=== PATIENT | male | born 1985 | race Caucasian/White ===

== ENCOUNTER 2018-08-05 13:46 | Inpatient (IN) | payer OTHER ==
--- NOTE | 2018-08-05 13:51 | EDPHY ---
H & P Time Seen by Provider: 08/05/18 13:49 HPI/ROS: CHIEF COMPLAINT: Homicidal ideation HISTORY OF PRESENT ILLNESS: 33-year-old male arrives via police from mental health walk-in clinic after he allegedly made toward his brother. Patient denies complaints of pain or discomfort. Denies suicidal ideation. Denies illicit drug or alcohol use. History schizoaffective disorder, off medication. REVIEW OF SYSTEMS: 10 systems reviewed and negative with the exception of the elements mentioned in the history of present illness PAST MEDICAL & SURGICAL HISTORY: Schizoaffective disorder. SOCIAL HISTORY: Denies illicit drug or alcohol use PHYSICAL EXAM (Prior to examination, patient consented to physical exam, hands were washed and my usual and customary physical exam procedures followed) 1) GENERAL: Well-developed, well-nourished, alert and oriented. Agitated. 2) HEAD: Normocephalic, atraumatic 3) HEENT: Pupils equal, round, reactive to light bilaterally. Sclera anicteric. 4) NECK: Full range of motion, no meningeal signs. 5) LUNGS: Clear auscultation bilaterally, no wheezes, no rhonchi, no retractions. 6) HEART: Regular rate and rhythm, no murmur, no heave, no gallop. 7) ABDOMEN: No guarding, no rebound, no focal tenderness,, 8) MUSCULOSKELETAL: Moving all extremities, no focal areas of tenderness, no obvious trauma. No peripheral edema or discoloration. 9) BACK: No obvious trauma, no visual or palpable abnormality. 10) SKIN: No rash, no petechiae. 11) Psychiatric: Patient is oriented X 3, there is no agitation. DIFFERENTIAL DIAGNOSIS: In no particular order including but not limited to depression, homicidal ideation, suicidal ideation (Lashawn,Michael Cara) Constitutional: Initial Vital Signs Temperature (C) 37.2 C 08/05/18 13:46 Heart Rate 104 H 08/05/18 13:46 Respiratory Rate 16 08/05/18 13:46 Blood Pressure 158/108 H 08/05/18 13:46 O2 Sat (%) 95 08/05/18 13:46 O2 Delivery Mode Room Air Allergies/Adverse Reactions: No Known Allergies Allergy (Unverified 09/08/12 09:31) Home Medications: Medication Instructions Recorded Mirtazapine [Remeron] 0 mg PO DAILY 09/08/12 risperiDONE MICROSPHERES 62 mg IM .Q 2 10 DAYS 09/08/12 [Risperdal Consta 37.5 mg (RX)] CLONAZEPAM 08/05/18 Medical Decision Making ED Course/Re-evaluation: 1:49 p.m.: Patient has allegedly made homicidal ideations toward his brother. [employer] police are at the bedside and have been advised by myself to contact the brother to alert him of the statements that been made toward him.. Patient is on an M1. 5:00 p.m.: Care turned over to Dr. Chandler Cavazos ([facility],Michael Acra) 2039: Patient seen and evaluated by mental health. Patient on M1 hold. Homicidal ideation. Patient accepted at [address] [place] [address] Stewart[address] EMTALA FILLED OUT. APPROP TRANSFER TO BE SET UP (Chandler Cavazos) - Data Points Laboratory Results: Laboratory Results 08/05/18 14:13 08/05/18 14:13 08/05/18 08/05/18 08/05/18 17:10 14:13 14:13 WBC RBC Hgb Hct MCV MCH MCHC RDW Plt Count MPV Neut % (Auto) Lymph % (Auto) [place] % (Auto) Eos % (Auto) Baso % (Auto) Nucleat RBC Rel Count Absolute Neuts (auto) Absolute Lymphs (auto) Absolute Monos (auto) Absolute Eos (auto) Absolute Basos (auto) Absolute Nucleated RBC Immature Gran % Immature Gran # Sodium 140 mEq/L mEq/L (135-145) Potassium 4.4 mEq/L mEq/L (3.5-5.2) Chloride 102 mEq/L mEq/L (97-110) Carbon Dioxide 27 mEq/l mEq/l (22-31) Anion Gap 11 mEq/L mEq/L (6-14) BUN 16 mg/dL mg/dL (7-23) Creatinine 0.9 mg/dL mg/dL (0.7-1.3) Estimated GFR > 60 Glucose 107 mg/dL H mg/dL (70-100) Calcium 10.4 mg/dL mg/dL (8.5-10.4) TSH 3.750 uIU/mL uIU/mL (0.465-4.680) Salicylates < 1.0 mg/dL L mg/dL (2.0-20.0) Urine Opiates Screen NEGATIVE (NEGATIVE) Acetaminophen < 10 mcg/mL L mcg/mL (10-30) Urine Barbiturates NEGATIVE (NEGATIVE) Ur Phencyclidine Scrn NEGATIVE (NEGATIVE) Ur Amphetamine Screen NEGATIVE (NEGATIVE) U Benzodiazepines Scrn NEGATIVE (NEGATIVE) Urine Cocaine Screen NEGATIVE (NEGATIVE) U Marijuana (THC) Screen NEGATIVE (NEGATIVE) Ethyl Alcohol < 10 mg/dL mg/dL (0-10) 08/05/18 14:13 WBC 10.18 10^3/uL H 10^3/uL (3.80-9.50) RBC 4.86 10^6/uL 10^6/uL (4.40-6.38) Hgb 15.1 g/dL g/dL (13.7-17.5) Hct 44.4 % % (40.0-51.0) MCV 91.4 fL fL (81.5-99.8) MCH 31.1 pg pg (27.9-34.1) MCHC 34.0 g/dL g/dL (32.4-36.7) RDW 13.0 % % (11.5-15.2) Plt Count 310 10^3/uL 10^3/uL (150-400) MPV 9.3 fL fL (8.7-11.7) Neut % (Auto) 70.8 % % (39.3-74.2) Lymph % (Auto) 20.0 % % (15.0-45.0) [place] % (Auto) 8.1 % % (4.5-13.0) Eos % (Auto) 0.3 % L % (0.6-7.6) Baso % (Auto) 0.6 % % (0.3-1.7) Nucleat RBC Rel Count 0.0 % % (0.0-0.2) Absolute Neuts (auto) 7.21 10^3/uL H 10^3/uL (1.70-6.50) Absolute Lymphs (auto) 2.04 10^3/uL 10^3/uL (1.00-3.00) Absolute Monos (auto) 0.82 10^3/uL H 10^3/uL (0.30-0.80) Absolute Eos (auto) 0.03 10^3/uL 10^3/uL (0.03-0.40) Absolute Basos (auto) 0.06 10^3/uL 10^3/uL (0.02-0.10) Absolute Nucleated RBC 0.00 10^3/uL 10^3/uL (0-0.01) Immature Gran % 0.2 % % (0.0-1.1) Immature Gran # 0.02 10^3/uL 10^3/uL (0.00-0.10) Sodium Potassium Chloride Carbon Dioxide Anion Gap BUN Creatinine Estimated GFR Glucose Calcium TSH Salicylates Urine Opiates Screen Acetaminophen Urine Barbiturates Ur Phencyclidine Scrn Ur Amphetamine Screen U Benzodiazepines Scrn Urine Cocaine Screen U Marijuana (THC) Screen Ethyl Alcohol Departure - Departure Referrals: Patient,NotPresent [Unknown] - As per Instructions
[2018-08-05 14:25] LABS: PLATELET COUNT 310 10^3/uL (150-400)
--- NOTE | 2018-08-05 19:03 | ASMTTLCEVL ---
[facility] Evaluation - Basic Information Evaluation Start Date and 08/05/2018 04:30 PM Time Hospital Status Answers: M1 Hold 72-hr M1 Hold Start Date 08/05/2018 01:15 PM and Time Patient statement Notes: "I showed up for my medication and they put me on a hold and I became agitated; Please don't put me in patient I have work on and I'm supposed to see my psychiatrist on Wednesday. I'm not going to hurt anyone or myself. Narrative Notes: Pt is 33 YO male, never , no children, unemployed/disabled, arrived by via police from clinic on M1 Hold after he allegedly made homicidal ideations toward his brother. Per ED report Patient is oriented X 3, there is no agitation, Patient denies complaints of pain or discomfort, pt denies suicidal ideation. Denies illicit drug or alcohol use. Per psychiatrist the pt is severely decompensating in several times looking really different then when at his baseline. Pt has been continuing to decompensate over last 4 months has not been med compliant. Making passive SI statements like "when his dog dies he's going to kill himself." and when extremely psychotic, hearing voices saying his darden, then saying he wants to get a gun to kill the people who are saying these things. 4 different times they have almost hospitalized but were able to come up with a safety plan and pt would be med compliant for a few days. PT Just went home to visit family in [place]. Said he was going to kill his brother, mother drove him back to [place]. Agitated psychotic rambling, verbally threatening. When he's at his worst he's verbally vile not physically aggressive. [facility] ip technology transactions attorney spoke with Pt's psychiatrist Lilian Belcher, and she believes pt needs stabilization on an inpt unit. Diagnosis History Notes: Schizoaffective disorder "Per psychiatrist Pt in [facility] since 2009; Schizoaffective disorder." Prior suicide attempts Notes: None Reported Prior hospitalizations Notes: [facility] 2008 then living in [facility] Treatment Responses Notes: Pt has been stable on medication for many years, held a job, has an apartment, but has bene recently decompesating. History of violence Notes: None reported Therapist: Marielena Alberts Psychiatrist: Lilian Belcher MD @ [facility] Medications (name, dosage, route, freq uency) Notes: Klonapin 10 Zyprexa am 20mg at night 200 Zoloft in the am 45 mg Mirtazapine [Remeron] at night 0 mg PO DAILY 09/08/12 [ [place] discontinued 2 weeks ago because he wasn't taking it in the clinic (only took it for a month). ] Allergies/Reaction Notes: No Known Allergies Allergy Sleep Notes: Good too much 8 to 10 hours Appetite Notes: Good Medical/Surgical history Notes: Pt has Thyrioid Issue but has not followed up per requests Substance use history (frequency, intensity, his tory, duration) Notes: Pt has used substances in the past but is not involved with any at this time. Family composition Notes: Mother brother and extended family live in [place]. Need for family Answers: Yes participation in patient's care Family psychiatric/substance abuse history Notes: Biological Father's Side Developmental history Notes: Denied ADD, ADHD, denied any concussions, TBI's or LOC Abuse concerns Answers: None Marital status/children Notes: Unmarried, one son lviing with his mother Living situation Notes: Living in apt in [facility] Sexual history/orientation Notes: Heterosexual, not active Peer support/family strengths Notes: Per psychiatrist pt's primary support is his family and a friend in [place] named Solomon (who may use substances from time to time and may not be the best influence). Education level/history Notes: High school Work history Notes: PT reported a history of working in [employer], [employer] and [employer] Currently the pt reports he work at [employer]. Notes: None reported Legal Notes: Pt's psychitrist reported pt had kota legal histry prior to 2008 but didn't know what it was. Pt denied any current legal issues. Denominational/Spiritual Notes: Pt reported he believed in Jose and that if you didn't beieved you would go to hel. Leisure Notes: Watching Movies, Petting Dog, buying scratch tickets, and gabmling at [employer] Collateral Notes: Collateral data obtained from Dr. Lilian Belcher MD who wrote the hold for the patient. Patient's strengths Answers: Artistic/Creative/Musical (Please select at least TWO strengths): Athletic Good Friend to Others [place] Supportive Family TLC Evaluation - Mental Status Exam Appearance: Answers: Appropriate Clean Well Groomed Eye Contact: Answers: Good/Direct Mood: Answers: Elevated Irritable Affect: Answers: Appropriate Apprehensive Calm Congruent w/ Mood Guarded Behavior: Answers: Appropriate Cooperative Guarded Impulsive Manipulative Resistive to Care Speech: Answers: Relevant Logical Clear Coherent Circumstantial Hyperverbal Perseverating Rambling Thought Process: Answers: Organized Oriented Alert Circumstantial Distracted Goal Oriented Paranoid Insight: Answers: Poor Judgement: Answers: Poor Manic Signs/Symptoms Answers: Distractibility Impulsivity Irritability Mood Swings Depression Answers: Psychomotor Agitation Signs/Symptoms: Hallucinations: Answers: Auditory Delusions: Answers: Ideas of Reference Paranoid Ideation Persecution Current Stage of Change Answers: Relapse Pt reported to be making Answers: No suicidal/self-injuring threats? Pt reported to have Answers: Yes aggression/assault ideation/behavior? Pt reported to be making Answers: Yes aggression/assault threats? Pt exhibits inability to Answers: Yes care for self/grave disability? Ideation/behavior is Answers: No chronic? Patient has a specific Answers: Yes plan? Pt has access to means to Answers: No execute the plan? Ideation involves Answers: Yes serious/lethal intent? History of Answers: No suicidal/self-injuring ideation, behavior, or threats? History of Answers: No aggressive/assaultive ideation, behavior, or threats? History of serious Answers: No physical harm to self/others while in treatment setting? TLC Evaluation - Suicide/Homicide Risk Suicide Risk Factors: Answers: Agitation Alcohol/Heavy Drug Use Impulsivity Inadequate Social Support Psychotic Disorder Single Homicide/violence risk Answers: Heavy Drug Use factors: Paranoid Ideation Suicide Internal Answers: Frustration Tolerance Protective Factors: Damari with Stress Suicide External Answers: Positive Therapeutic Protective Factors: Relationships Responsibility to Pets Social Support Ranking of patient's Answers: Low suicidal risk: Ranking of patient's Answers: Severe homicidal risk: TLC Evaluation - Wrap-up AXIS I Diagnosis (include DSM-V and ICD-10 codes), must also be entered in [employer], which is the source of truth. Notes: Schizoaffective Disorder, Bipolar Type 295.70 (F25.0) Evaluation End Date and 08/05/2018 07:00 PM Time (HH:MM): Date Signed: 08/05/2018 07:02 PM Electronically Signed By:Reg Vaughn
--- NOTE | 2018-08-05 19:07 | ASMTTCLDSP ---
TLC Discharge Disposition Disposition: Answers: Admit Disposition Notes: Notes: In consultation with [facility] ED physician, Chandler Espinoza MD; Pt's psychiatrist Dr. Belcher and on-call psychiatrist, Callum Stewart MD, both concurred that pt appears to meet 27-65 criteria requiring psychiatric hospitalization as pt appears to be gravely disabled and at risk of harm to others due to a mental illness condition. Pt was given the 3N prohibited belongings list while in the ED. Was patient given the Answers: Yes Inpatient Behavioral Health Prohibited Belongings List while in the ED? For inpatient Callum Stewart MD admission, the following psychiatrist agreed to accept patient for admission to Behavioral Health ([facility]): Type of Hold: Answers: M1/72-hour Hold Hold initiated by: Answers: Psychiatrist For Transfers, Accepting Callum Stewart MD Facility: Date Signed: 08/05/2018 07:06 PM Electronically Signed By:Reg Vaughn
[2018-08-05] MEDS ORDERED: LORazepam 0.5 MG TAB PO PRN (22:13)
[2018-08-05] MEDS ORDERED: NICOTINE POLACRILEX 2 MG GUM B PRN (22:13)
[2018-08-05] MEDS ORDERED: ACETAMINOPHEN 325 MG TAB PO PRN (22:13)
[2018-08-05] MEDS ORDERED: MAG HYDROX/AL HYDROX/SIMETH 30 ML UDCUP PO PRN (22:13)
[2018-08-05] MEDS ORDERED: OLANZapine DISINTEGR 10 MG TAB PO PRN (22:13)
[2018-08-05] MEDS ORDERED: MAGNESIUM HYDROXIDE 30 ML UDCUP PO PRN (22:13)
[2018-08-05] MEDS ORDERED: OLANZapine DISINTEGR 5 MG TAB PO PRN (22:19)
[2018-08-05] MEDS ORDERED: MIRTAZAPINE 30 MG TAB PO SCH (22:30)
[2018-08-05] MEDS ORDERED: OLANZapine 10 MG TAB PO SCH (22:30)
--- NOTE | 2018-08-06 14:17 | ASMTBHMTP ---
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 I spoke to my therapist, Marielena, she had two officers waiting to take me" to the [facility] ED. The patient was placed on a 27-65 M1 hold by his team at [facility]. He stated, "I shouldn't be here." He reported that he had a verbal conflict with his family while in [place] for the holidays. He asked his family to bring him home. The patient refused to elaborate on the conflict stating, "It is personal." Patient's stated presenting problems: Notes: The patient reported that he has been medication compliant. He denied sporadic use. He did not endorse any mental health symptoms. The patient has a diagnostic history of Schizoaffective Disorder, Bipolar type. Patient's goals for treatment: Notes: The patient reported that he would like to discharge. The patient agreed to participate in programming including, sleeping six-eight hours, completing three meals per day, and attending groups. Patient's strengths: Notes: The patient stated, "I'm cooperative and communicative." Identify supports outside of hospital: Notes: The patient is supported by his family, friends, co-workers, and his outpatient team at [facility] including Dr. Dunne. Discharge criteria: Notes: Patient will demonstrate more stable mood by discharge. Initial disposition plan/considerations: Notes: The patient reported that he has his own apartment. He works at [employer]. He will return home upon discharge. Master Treatment Plan Required Signatures Psychiatrist signature: Answers: Callum Stewart MD: RN on-shift signature: Answers: RN: Patient signature: Answers: Patient: Date Signed: 08/06/2018 02:16 PM Electronically Signed By:Tessa Dunn
[2018-08-06] MEDS ORDERED: OLANZapine DISINTEGR 5 MG TAB PO PRN (16:34)
[2018-08-06] MEDS ORDERED: OLANZapine 10 MG TAB PO SCH (16:34)
--- NOTE | 2018-08-06 18:18 | BAPA ---
DATE OF SERVICE: 08/06/2018 CHIEF COMPLAINT: "I showed up for my medication and they put me on a hold and I became agitated. Please don't put me inpatient. I have work on the and I'm supposed to see my psychiatrist on Wednesday. I'm not going to hurt myself or anyone." HISTORY OF PRESENT ILLNESS: The patient is a 33-year-old man, never , no children, unemployed, disabled, who arrived by [facility] from [facility], where he was placed on a mental health hold. His mental health hold was initiated by Dr. Lizette Dunne. The hold states "33-year-old man with long history of schizoaffective disorder, depressed type. The patient has had 4-month decline, not adherent with medications. He has presented with threatening statements to get a gun and kill men who think he might he "might be darden." Is hearing these auditory hallucinations. Has also made SI statements recently. Threatened to kill his brother. Refusing intervention in psychiatric and grave disability due to paranoid delusions and not being able to take means to improve his situation." Patient's family reports that he has also been making passive SI statements like "when his dog dies he's going to kill himself." Family states that 4 different times they have almost hospitalized him but were able to come up with a safety plan, and the patient would be med-compliant for a few days. Patient's family brought him to [place] for [place], but he became agitated, uncooperative, refused to take medications, stated he was going to kill his brother. Mother drove him back to [place], where he went to see his outpatient psychiatrist, Lilina Dunne at [facility], who placed him on a mental health hold and called police to bring him to the emergency department. When this MD met with the patient on the Inpatient Behavioral Health Services Unit, he was calm, cooperative, pleasant. He was not agitated. He did not make any threatening statements. He was not acting in an aggressive manner. He was clean, wearing jeans and a T-shirt. He stated that he needed to go to work next week and that he did not want to stay in the hospital very long. He claimed that, "I don't need to be hospitalized. I had a disagreement with my family." Patient earlier told staff that he had asked his brother to go out and "get high" with him in [place]. 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 Patient states that he had been doing well on his medications and he did not have a problem with taking medications and he agreed to continue on those medications while he was in the hospital. PAST PSYCHIATRIC HISTORY: Patient's last inpatient psychiatric hospitalization was in 2008 at [facility] on [address] [place] [address]. He has not required hospitalization since then. He lived briefly at [facility] when he got out of [address] [place] [address] in 2008. Since then, he has been living on his own in an apartment. He has a part-time job working at [employer] and is on long-term disability for his mental illness. He has no prior history of suicide attempts. ALLERGIES: No known drug allergies. CURRENT MEDICATIONS: A daily medication list was sent over from Dr. Lizette Dunne at [facility] and it states that the patient is prescribed the following medications: Remeron 45 mg p.o. at bedtime, Zyprexa 20 mg p.o. at bedtime, Zoloft 200 mg p.o. at bedtime, clonazepam 1 mg p.o. at bedtime, clonazepam 0.5 mg p.o. q.a.m. and Zyprexa 5 mg p.o. q.a.m. LABORATORY DATA: Labs that were done in the [facility] ED: White cell count 10.18, hemoglobin 15.1, hematocrit 44.4, platelet count 310. Sodium level is 140, potassium 4.4, chloride 102, BUN 16, creatinine 0.9, glucose 107, calcium 10.4. TSH is 3.750. Urine drug screen is negative for all drugs of abuse. Ethyl alcohol level was undetected. Salicylate and acetaminophen levels were both undetected. PAST MEDICAL HISTORY: Patient has no prior medical conditions. There is some reference made to a possible "thyroid issue" but his TSH was normal on this admission. He is not currently taking any medications for any medical problems. SOCIAL HISTORY: Patient's mother and brother live in [place]. His family is his primary support. He has 1 friend in [place], named Solomon. He currently is working at [employer]; is on long-term disability. He graduated from high school. FAMILY HISTORY: There is some reference made to mental illness on his biological dad's side of the family but there is not very much information about what that is. SUBSTANCE USE HISTORY: Patient does have a history of using substances in the past. Mother says that the patient asked his brother to go out and "get high" with him when he was in [place] for the holiday. Family says that he uses substances from "time to time" with his friend in [place]. He admits to smoking marijuana but will not say how frequently or how much. Mother says that she thought she saw "a crack pipe" in his apartment, but the patient does not admit to using any other drugs besides marijuana. TRAUMA: Patient denies any trauma history. LEGAL HISTORY: Patient currently does not have any legal charges pending. MENTAL STATUS EXAMINATION: This is a tall, thin, appropriately groomed man sitting in a chair in front of the TV, wearing jeans and a T-shirt. He is alert and oriented x4. His affect is pleasant, cooperative, euthymic. He is appropriate. He makes good eye contact. His speech rate and volume are normal. His intellectual function appears to be average based upon his vocabulary, fund of knowledge, and educational history. He denies feeling sad, helpless, hopeless, worthless, and anxious. He denies any symptoms of psychosis , including denying auditory and visual hallucinations, paranoid delusions, ideas of reference and bizarre thoughts. The patient does not exhibit any symptoms of patt. He does not have increase in goal-directed activity, decreased need for sleep, racing thoughts, pressured speech, grandiose delusions , or elated mood. He denies any thoughts, plans, or intents to hurt himself or anyone else. His thought process is tangential. His insight and judgment are both impaired, as evidenced by his recent history of noncompliance with treatment, nonadherence to medications, and recent hostile statements towards his brother. IMPRESSION: 1. Schizoaffective disorder, depressed type by history. 2. Cannabis use disorder, unknown severity. 3. Long-term disability. 4. Conflict with his family. 5. Nonadherence to medication, noncompliance with outpatient treatment. PLAN: 1. Admit patient to the inpatient Behavioral Health Services Unit on 3 on an M1 hold. 2. Monitor closely for safety. The patient is currently not exhibiting any signs of psychosis or unsafe behavior. He is not endorsing SI, HI. He is not endorsing any auditory or visual hallucinations. He denies any thoughts, plans , or intents to hurt himself or anyone else. 3. We will continue to monitor and observe the patient. He is currently not endorsing any psychosis. He is also not making any statements to hurt himself or anyone else. He denies having thoughts about wanting to hurt his brother or any other family members, and he denies having thoughts about wanting to hurt people because they think he is "darden." These were all presenting symptoms and reasons for the patient being placed on an M1 hold. He is currently denying them. 4. We will restart the patient's medications but at lower doses than what he had previously been taking because of his history of noncompliance over the past several months. Family reports that he takes medications "some of the time " and they can usually get him to take medications for "several days in a row," so it seems like patient is at least taking some of his medications, but not regularly. 5. Estimated length of stay is 2 to 3 days. The patient is very distressed to be in the hospital. He states that he needs to go to work on , the . His family right now does not feel comfortable with him being with them in [place] but, prior to discharge, if the patient continues to exhibit appropriate behavior and is not making any threats of hurting himself or anyone else, family may be willing to reconsider. They are his primary social support system, and it would be good for him to be under their supervision and monitoring at least until he can have a followup appointment with [facility]. He may be eligible to go to [facility] as a step- down facility. Spice Room Worker will need to check with [facility] staff prior to discharge. /[id number]/MODL MTDD
[2018-08-06] MEDS: MIRTAZAPINE 30 MG TAB PO SCH (20:24)
[2018-08-06] MEDS: clonazePAM 1 MG TAB PO SCH (20:24)
[2018-08-06] MEDS: OLANZapine 10 MG TAB PO SCH (20:25)
[2018-08-06] MEDS: SERTRALINE HCL 100 MG TAB PO SCH (20:25)
[2018-08-06] MEDS ORDERED: SERTRALINE HCL 100 MG TAB PO SCH (21:00)
--- NOTE | 2018-08-07 03:02 | BCON ---
INTERNAL MEDICINE CONSULTATION DATE OF CONSULTATION: 08/06/2018 REFERRING PHYSICIAN: Callum Stewart MD REASON FOR REFERRAL: Medical clearance for inpatient behavioral health stay. HISTORY OF PRESENT ILLNESS: This patient came to the emergency department yesterday on an M1 hold ordered by his psychiatrist. He had homicidal ideation toward others and was judged to be decompensating with regard to schizoaffective disorder. There were concerns that he had been noncompliant with his medications. He currently reports feeling tired, having not slept enough last night and feeling somewhat anxious. Otherwise, he has no acute complaints. PAST MEDICAL HISTORY: 1. Mental health issues with diagnosis of schizoaffective disorder. 2. History of a suppressed TSH. MEDICATIONS: Per pharmacy reconciliation: 1. Clonazepam. 2. Olanzapine 10 mg q.a.m. and 20 mg at bedtime. 3. Sertraline to 200 mg daily. 4. Mirtazapine 45 mg p.o. at bedtime. 5. He had a recent prescription for lithium, but was not taking it. ALLERGIES: No known drug allergies. SOCIAL HISTORY: He is single, but has a son who lives with his mother in [place]. He has been working at [employer]. He is a nonsmoker. FAMILY HISTORY: Noncontributory. REVIEW OF SYSTEMS: He reports feeling tired, having not slept long enough last night. He feels anxious. He feels hungry. He denies weight change, fevers, chills, cough, dyspnea, chest pain, palpitations, nausea, vomiting, constipation , or diarrhea. Otherwise, a 10-point review of systems is negative. PHYSICAL EXAM: VITAL SIGNS: Blood pressure is 120/64, heart rate is 85, respiratory rate is 16, oxygen saturation is 94% on room air. Temperature is 36.7 degrees centigrade. Prior to this morning, his blood pressures were ranging from 136-159 systolic and from 80-108 diastolic in the emergency department. GENERAL: This is a well-nourished, well-developed man lying in bed , sits up for the exam. Cooperative and in no acute distress. HEENT: Extraocular movements are intact. Pupils are equal, round, reactive to light. Mucous membranes are moist. Dentition is in good condition. NECK: Supple. HEART: There is regular rate and rhythm with no murmurs, rubs, or gallops. LUNGS: Clear to auscultation bilaterally. ABDOMEN: Benign. EXTREMITIES: There is no cyanosis, clubbing, or edema. NEUROLOGIC: He is alert and oriented x3. Cranial nerves 2-12 are grossly intact. There is no focal weakness. Sensation is intact to light touch and gait is within normal limits. LABORATORY STUDIES: From the emergency department yesterday, CBC was overall within normal limits but for a mildly elevated white count of 10.18. There was no left shift. Serum chemistry revealed normal renal function and electrolytes. Glucose was very slightly elevated at 107, but this may not have been fasting. TSH was normal at 3.75. Toxicology screen in the serum was negative for salicylates, acetaminophen or ethyl alcohol and the urine was negative for any substances of abuse. ASSESSMENT/RECOMMENDATIONS: 1. Mental health issues pending further evaluation and management per Psychiatry and the mental health team. 2. Elevated blood pressure appears to have resolved. Advise monitoring. 3. Otherwise normal exam. I see no medical contraindications to this patient's continued stay on the inpatient behavioral health unit or to any psychiatric medications or procedures. Thank you very much for including me in the care of this patient and please do not hesitate to contact me or the hospitalist service should there be need for further medical evaluation. /[id number]/MODL MTDD
--- NOTE | 2018-08-07 06:16 | PDMN ---
Medical Necessity Medical necessity: Pt meets INPT criteria per MD as of 08/05/18 and [facility] [place] (schizoaffective disorder, depressed type by hx; M1 hold).
[2018-08-07] MEDS: clonazePAM 0.5 MG TAB PO SCH (08:36)
--- NOTE | 2018-08-07 13:40 | ASMTBHFAM ---
Notes Note: Notes: Per Brittney Mathew (The patient's mother), the patient has been steadily declining since March. He has not been taking his medications. He has history of being "manipulative." He took his medication last Wednesday after persistent requests from family. She stated, "We should have had him hospitalized at [facility]. I picked him up last Wednesday and brought him back to [place] for the holidays. He was verbally not nice. He was talking under his breath. He was asking for scratch tickets and asking my youngest son to take him to get high. On Wednesday, I came home from work and asked him if he had taken his medications. He got angry, angry, angry. He threw the pill case on the floor and it shattered everywhere. He stated, "I don't need you to tell me how to take these medications. My doctor is trying to keep me sedated all day. Don't f*ing tell me I need to take my medications. I'll f*ing kill you. I just want to go back to [place]." Brittney stated, "I took him back to [place] on . Before we left he slammed three beers. I noticed my 's whiskey was moved. He hadn't asked for etoh since he had been here." Brittney confirmed that she has the patient's keys to his apartment and his dog while he is in the hospital. She reported that she found a "crack pipe" when she went to his house to fruit or nut picker the dog. Date Signed: 08/07/2018 01:40 PM Electronically Signed By:Tessa Dunn
--- NOTE | 2018-08-07 17:45 | SOAPPROG ---
SOAP Progress Note Assessment/Plan: Assessment: 33 yo man with h/o schizoaffective disorder was last hospitalized in 2008 at [facility]. He is client at [facility]. MO reports he has been refusing to take medications, drinking ETOH, using THC and possibly other drugs. He presented irritable and aggressive with family on & Wednesday, threatening MOC and BOC. Plan: 08/07/18 17:41 1. Patient is calm, cooperative with staff and peers on unit. He is taking meds appropriately. 2. Patient is worried about his dog. His MOC reports she picked up his dog and is taking care of it. 3. Patient denies any psychotic sxs. There is no evidence of RIS, patt or psychosis. 4. Family is worried patient will not take meds once he leaves hospital and will return to using ETOH and drugs. 5. Patient currently on [facility]. Subjective: Patient wearing same T-shirt and jeans as yesterday. He is calm, pleasant and polite. He denies all psychotic and manic sxs. He denies any thoughts, plan or intent to hurt himself or others. Denies any thoughts or intent to hurt his family, specifically denies any plan to hurt his MOC or BOC. Patient says he wants to "go home" to be in his own apartment. MD expresses concern that patient will not take meds and might return to ED or inpatient unit. Patient says that won't happen. He assures MD he will be compliant with meds. Objective: Vital Signs Temp Pulse Resp BP Pulse Ox 36.4 C 37 L 14 103/52 L 96 08/07/18 06:00 08/07/18 06:00 08/07/18 06:00 08/07/18 06:00 08/07/18 06:00 MSE: Affect: Euthymic Mood: "OK" TP: Tangential TC: Denies any SI/HI Insight/Judgment: Poor - Time Spent With Patient Time Spent With Patient: 15" - Pending Discharge Pending Discharge Within 24 Hours: No Pending Discharge Within 48 Hours: No ICD10 Worksheet Patient Problems: Problems Problem Status Onset Alcohol use disorder, severe, dependence Acute Cannabis use disorder, severe, dependence Acute Schizoaffective disorder Acute - ICD10 Problem Qualifiers (1) Schizoaffective disorder Qualifiers: Schizoaffective disorder type: bipolar Qualified Code(s): F25.0 - Schizoaffective disorder, bipolar type (2) Alcohol use disorder, severe, dependence (3) Cannabis use disorder, severe, dependence
[2018-08-07] MEDS: SERTRALINE HCL 100 MG TAB PO SCH (20:47)
[2018-08-07] MEDS: clonazePAM 1 MG TAB PO SCH (20:47)
[2018-08-07] MEDS: OLANZapine 10 MG TAB PO SCH (20:47)
[2018-08-07] MEDS: MIRTAZAPINE 30 MG TAB PO SCH (20:47)
[2018-08-08 07:09] VITALS: BP 114/63
--- NOTE | 2018-08-08 08:34 | SOAPPROG ---
SOAP Progress Note Assessment/Plan: Assessment: Unspecified psychosis. Cannabis Use Disorder, Severe. Slight improvement noted (see subjective/objective note). Patient continues to show poor insight into reason for hospitalization; denies threatening to kill his brother, denies using ETOH and THC prior to hospitalization. Denies history of medication non- adherence. Patient could benefit from continued inpatient hospitalization for crisis stabilization, safety, and medication evaluation. Plan: 1. Psychotropic medications: After reviewing options, risks, and benefits patient agrees to continue current mediations. No medication changes at this time as more time is needed to determine ongoing tolerability and efficacy. Plan is to continue to observe patient for response and side effects from medications, and ongoing monitoring and evaluation. 2. Review with patient informed consent and recommendations for psychotropic medication treatment listed below 3. Labs: A1c, lipid panel, liver function test 4. Therapy: continue milieu and group therapy 5. Further investigation including gathering information from patients relatives and review of past case records to inform treatment plan. 6. Safety/Wellness plan and follow-up outpatient appointments to be established prior to discharge. Next steps are for patient to meet with school childcare attendant to plan a safe discharge plan and establish outpatient services for ongoing treatment. 7. Confer with inpatient treatment team regarding treatment plan. 8. Psychosocial stressors addressed through counter caser 9. Legal status: M1 10. Consider discharge this week if patient is in stable condition, safe, and has a safe discharge plan. 11. Substance abuse interventions: cannabis PSYCHOTROPIC MEDICATION TREATMENT INFORMED CONSENT and RECOMMENDATIONS: Review nature of condition, diagnosis, and prognosis. Review nature and purpose of psychotropic medication treatment. Review type of psychotropic medications being ordered. Review risk and benefits of psychotropic medication treatment. Review probable length of time patient will need to take medications. Review risk and benefits of not undergoing psychotropic medication treatment. Review alternative treatments to psychotropic medications. Review psychotropic medications contraindications, drug-drug interactions, side effects, and importance of reporting any side effects to a psychiatric provider or nurse during inpatient hospitalization, and upon discharge to patients psychiatric outpatient provider, primary care provider, or other health director of medicare. Review importance of asking a nurse, psychiatric provider, or primary care provider any questions or problems concerning the psychotropic medications. Verify patient understands the information that has been provided, and understands, accepts, and agrees to psychotropic medications. Review patients safety plan and importance of patient to report to staff while hospitalized if patient is ever a danger to self/others, or unable to care for self, and upon discharge, the importance for patient to contact [facility] or [facility], or go to the nearest emergency room, if patient is ever a danger to self/others, or unable to care for self. Recommend that upon discharge patient establish medication management treatment with a psychiatric provider, establishes routine therapy appointments, and follow-up with primary care provider. Verify patient understands and agrees to these recommendations. 08/08/18 08:35 Subjective: Following up with patient for evaluation of psychosis, patt, and safety. Patient reports, "Not sure why I am here exactly. I did not threaten to kill my brother. He started an argument with me. My family is making false accusations about me." Patient expresses the following psychiatric symptoms none. Patient reports taking medications as prescribed, and describes response to medications as good. Patient does not report undesirable side effects from the medications, and agrees to continue current medications. Patient describes getting 8 hours of sleep, and reports feeling rested today. Patient denies using ETOH and THC, reports not using for a month. Objective: Vital Signs Temp Pulse Resp BP Pulse Ox 36.5 C 61 14 114/63 95 08/08/18 06:00 08/08/18 06:00 08/08/18 06:00 08/08/18 06:00 08/08/18 06:00 NURSING REPORT: Consulted with nursing for update on patients progress in treatment. Nurses report patient is engaged in treatment, not attending groups , slept 8 hours, expresses the following psychiatric symptoms: none, exhibits the following psychiatric symptoms: withdrawn to room, avoids social interactions; is eating all meals, is agreeable to medications and taking as prescribed with no report of side effects, with no s/s of EPS/akathisia, and denies SI/HI, denies A/V hallucinations, and reports delusions. MD REPORT FROM WEEKEND: placed on M1 hold due to threatening to kill his brother ; [facility] reports patient has been drinking and using THC; patient has been calm and cooperative here taking medications. Lowered doses of OP meds due to report of patient recent non-adherence. MSE: The patient is a well-nourished male looking stated chronological age. Attire is appropriate and dress is casual. Grooming status is appropriate. Ambulation is independent. Gait is normal and coordinated. Posture is normal. Eye contact is appropriate. Motor activity is appropriate with purposeful, organized, coordinated movements; with no involuntary movements. Attitude is cooperative. Patient appears attentive and relates well to this interviewer. Language production is spontaneous. Rate is normal, latency of response is shortened, volume is appropriate. Articulation is clear. Patient reports mood as okay with congruent and appropriate affect. Patients thought process linear and logical with no signs of thought disorder. Patient does not report suicidal /homicidal thoughts, ideas, or plans. Patient denies auditory, visual hallucinations. Patient denies delusions. Patient does not appear to be attending to internal stimuli. Patients attention and concentration are fair. Patient is oriented to person, place, time. Patients insight and judgment poor. SUBSTANCE ABUSE BRIEF INTERVENTION: Brief intervention regarding the risks of cannabis abuse is provided to patient with goal to reduce the risk of harm that could result from the continued use of cannabis, with the general aim to investigate the problem, raise awareness of problem, develop a solution with the patient, recommend a specific change or activity, and motivate the patient toward change. Assess substance abuse behavior and give supportive advice about harm reduction, recommend a reduction in hazardous/at-risk consumption patterns, and facilitate referrals for additional specialized treatment with floor care technician. Intermediate goal is for the patient to quit and attend outpatient substance abuse treatment. Intervention focus on intermediate goals to allow for more immediate success in the treatment process to keep the patient motivated. Review following with patient: Cannabis use risks: Short- term use: impaired short-term memory, impaired motor coordination, altered judgement, in high doses paranoia and psychosis. Long-term use addiction, diminished life satisfaction and achievement, symptoms of chronic bronchitis, and increased risk of chronic psychosis disorders if predisposition to such disorders. In withdrawal anger, aggression irritability, anxiety and nervousness, decreased appetite or weight loss, restlessness, and sleep difficulties with strange dreams. OUTPATIENT SUBSTANCE ABUSE TREATMENT: Patient referred to outpatient provider and treatment for continued treatment related to substance abuse. - Time Spent With Patient Time Spent With Patient: 15 minutes, met with patient individually. - Pending Discharge Pending Discharge Within 24 Hours: No Pending Discharge Within 48 Hours: No ICD10 Worksheet Patient Problems: Problems Problem Status Onset Alcohol use disorder, severe, dependence Acute Cannabis use disorder, severe, dependence Acute Schizoaffective disorder Acute
[2018-08-08] MEDS: clonazePAM 0.5 MG TAB PO SCH (08:48)
--- NOTE | 2018-08-08 11:13 | ASMTCMCOM ---
CM Note CM Note Notes: CC and provider reach out to [facility] and [facility] to gather additional information (Ferny at [phone]) no answer for both; CC was able to leave a VM with all necessary return contact information. Date Signed: 08/08/2018 11:13 AM Electronically Signed By:Joe Keith
[2018-08-08] MEDS ORDERED: OLANZapine 10 MG TAB PO SCH (12:20)
[2018-08-08] MEDS: MIRTAZAPINE 30 MG TAB PO SCH (20:36)
[2018-08-08] MEDS: SERTRALINE HCL 100 MG TAB PO SCH (20:36)
[2018-08-08] MEDS: clonazePAM 1 MG TAB PO SCH (20:36)
[2018-08-09] MEDS ORDERED: OLANZapine 10 MG TAB PO SCH (07:45)
--- NOTE | 2018-08-09 08:16 | SOAPPROG ---
SOAP Progress Note Assessment/Plan: Assessment: Bipolar I Disorder with mood congruent psychotic features. Cannabis Use Disorder, Severe. Slight improvement noted (see subjective/objective note). Patient could benefit from continued inpatient hospitalization for crisis stabilization, safety, and medication evaluation. Plan to discharge tomorrow. Plan: 1. Psychotropic medications: After reviewing options, risks, and benefits patient agrees to continue current mediations. No medication changes at this time as more time is needed to determine ongoing tolerability and efficacy. Plan is to continue to observe patient for response and side effects from medications, and ongoing monitoring and evaluation. 2. Review with patient informed consent and recommendations for psychotropic medication treatment listed below 3. Labs: no additional labs at this time. 4. Therapy: continue milieu and group therapy 5. Further investigation including gathering information from patients relatives and review of past case records to inform treatment plan. 6. Safety/Wellness plan and follow-up outpatient appointments to be established prior to discharge. Next steps are for patient to meet with complex care nurse practitioner to plan a safe discharge plan and establish outpatient services for ongoing treatment. 7. Confer with inpatient treatment team regarding treatment plan. 8. Psychosocial stressors addressed through dependency case manager 9. Legal status: [facility] 10. Consider discharge this week if patient is in stable condition, safe, and has a safe discharge plan. 11. Substance abuse interventions: cannabis PSYCHOTROPIC MEDICATION TREATMENT INFORMED CONSENT and RECOMMENDATIONS: Review nature of condition, diagnosis, and prognosis. Review nature and purpose of psychotropic medication treatment. Review type of psychotropic medications being ordered. Review risk and benefits of psychotropic medication treatment. Review probable length of time patient will need to take medications. Review risk and benefits of not undergoing psychotropic medication treatment. Review alternative treatments to psychotropic medications. Review psychotropic medications contraindications, drug-drug interactions, side effects, and importance of reporting any side effects to a psychiatric provider or nurse during inpatient hospitalization, and upon discharge to patients psychiatric outpatient provider, primary care provider, or other health childcare aide. Review importance of asking a nurse, psychiatric provider, or primary care provider any questions or problems concerning the psychotropic medications. Verify patient understands the information that has been provided, and understands, accepts, and agrees to psychotropic medications. Review patients safety plan and importance of patient to report to staff while hospitalized if patient is ever a danger to self/others, or unable to care for self, and upon discharge, the importance for patient to contact [facility] or [facility], or go to the nearest emergency room, if patient is ever a danger to self/others, or unable to care for self. Recommend that upon discharge patient establish medication management treatment with a psychiatric provider, establishes routine therapy appointments, and follow-up with primary care provider. Verify patient understands and agrees to these recommendations. 08/09/18 08:15 Subjective: Following up with patient for evaluation of psychosis, patt, and safety. Patient reports, "Slept good." Patient expresses the following psychiatric symptoms none. Patient reports taking medications as prescribed, and describes response to medications as good. Patient does not report undesirable side effects from the medications, and agrees to continue current medications. Patient agrees to increase Zyprexa Zydis to 20 mg po QHS and reports this is the dose he was at prior to his admission. Patient describes getting 8 hours of sleep, and reports feeling rested today. Patient reports plan to go to [facility] to pick-up his medications, and then take a bus to his apartment. Patient reports he is to return to work at [employer] , and his mom and dad plans to visit him this . Objective: Vital Signs Temp Pulse Resp BP Pulse Ox 36.5 C 61 14 114/63 95 08/08/18 06:00 08/08/18 06:00 08/08/18 06:00 08/08/18 06:00 08/08/18 06:00 NURSING REPORT: Consulted with nursing for update on patients progress in treatment. Nurses report patient is engaged in treatment, not attending groups , slept 8 hours, expresses the following psychiatric symptoms: none, exhibits the following psychiatric symptoms: withdrawn to room, avoids social interactions; is eating all meals, is agreeable to medications and taking as prescribed with no report of side effects, with no s/s of EPS/akathisia, and denies SI/HI, denies A/V hallucinations, and reports delusions. MSE: The patient is a well-nourished male looking stated chronological age. Attire is appropriate and dress is casual. Grooming status is appropriate. Ambulation is independent. Gait is normal and coordinated. Posture is normal. Eye contact is appropriate. Motor activity is appropriate with purposeful, organized, coordinated movements; with no involuntary movements. Attitude is cooperative. Patient appears attentive and relates well to this interviewer. Language production is spontaneous. Rate is normal, latency of response is shortened, volume is appropriate. Articulation is clear. Patient reports mood as okay with congruent and appropriate affect. Patients thought process linear and logical with no signs of thought disorder. Patient does not report suicidal /homicidal thoughts, ideas, or plans. Patient denies auditory, visual hallucinations. Patient denies delusions. Patient does not appear to be attending to internal stimuli. Patients attention and concentration are fair. Patient is oriented to person, place, time. Patients insight and judgment poor. SUBSTANCE ABUSE BRIEF INTERVENTION: Brief intervention regarding the risks of cannabis abuse is provided to patient with goal to reduce the risk of harm that could result from the continued use of cannabis, with the general aim to investigate the problem, raise awareness of problem, develop a solution with the patient, recommend a specific change or activity, and motivate the patient toward change. Assess substance abuse behavior and give supportive advice about harm reduction, recommend a reduction in hazardous/at-risk consumption patterns, and facilitate referrals for additional specialized treatment with pet caretaker. Intermediate goal is for the patient to quit and attend outpatient substance abuse treatment. Intervention focus on intermediate goals to allow for more immediate success in the treatment process to keep the patient motivated. Review following with patient: Cannabis use risks: Short- term use: impaired short-term memory, impaired motor coordination, altered judgement, in high doses paranoia and psychosis. Long-term use addiction, diminished life satisfaction and achievement, symptoms of chronic bronchitis, and increased risk of chronic psychosis disorders if predisposition to such disorders. In withdrawal anger, aggression irritability, anxiety and nervousness, decreased appetite or weight loss, restlessness, and sleep difficulties with strange dreams. OUTPATIENT SUBSTANCE ABUSE TREATMENT: Patient referred to outpatient provider and treatment for continued treatment related to substance abuse. - Time Spent With Patient Time Spent With Patient: 15 minutes, met with patient individually. - Pending Discharge Pending Discharge Within 24 Hours: Yes Pending Discharge Within 48 Hours: No Pending Discharge Date: 08/10/18 Pending Discharge Time: 11:00 ICD10 Worksheet Patient Problems: Problems Problem Status Onset Alcohol use disorder, severe, dependence Acute Cannabis use disorder, severe, dependence Acute Schizoaffective disorder Acute
[2018-08-09] MEDS: clonazePAM 1 MG TAB PO SCH ×2 (08:30→19:09)
--- NOTE | 2018-08-09 10:52 | ASMTCMCOM ---
CM Note CM Note Notes: Ct. was in bed resting when CC checked in. Ct. reported that he is doing fine. He said that he has been appropriate and has been participating in some groups. He repeatedly said that he doesn't want "to walter anyone". He said that he is thinking about resolutions for next year. He plans on returning to work upon discharge. Date Signed: 08/09/2018 10:52 AM Electronically Signed By:Ann Gregorio
[2018-08-09] MEDS: MIRTAZAPINE 30 MG TAB PO SCH (19:08)
[2018-08-09] MEDS: SERTRALINE HCL 100 MG TAB PO SCH (19:09)
[2018-08-10] MEDS: clonazePAM 1 MG TAB PO SCH (08:42)
--- NOTE | 2018-08-10 09:49 | BDS ---
REASON FOR ADMISSION: From the ED note dated 08/05/2018, the patient arrived to the emergency room by police from [facility], after allegedly making a threat toward his brother. The patient denied suicidal ideation. He denied illicit drug and alcohol use. The patient reported being off his psychotropic medications for schizoaffective disorder. The patient was admitted involuntarily on an M1 hold due to being gravely disabled due to a mental illness and was also hospitalized due to being a danger to others, notably making a homicidal threat toward his brother. The patient was admitted for safety, crisis stabilization, and medication management. ADMITTING DIAGNOSES: 1. Schizoaffective disorder. 2. Alcohol use disorder, severe. 3. Cannabis use disorder, severe. 4. Nonadherence to medical treatment. ADMISSION PHYSICAL EXAMINATION: The patient was seen for an Internal Medicine consultation on 08/06/2018, for medical clearance for inpatient psychiatric hospitalization and treatment. The patient was medically cleared for inpatient psychiatric hospitalization and treatment. For further details, please refer to the consultation note dated 08/06/2018. ADMISSION LABS: 1. CBC from 08/05/2018, within normal limits, except white blood cells were elevated at 10.18. Eosinophils were low at 0.3. Absolute neutrophils were elevated at 7.21. Absolute monocytes were elevated at 0.82. 2. BMP within normal limits, except glucose was elevated at 107. 3. Hemoglobin A1c from 08/08/2018, was within normal limits at 5.7. 4. Liver function from 08/08/2018, within normal limits. 5. Lipid panel within normal limits, except triglycerides were elevated at 190 and cholesterol was elevated at 227. LDL cholesterol calculated was elevated at 142. VLDL cholesterol was elevated at 38. Non-HDL cholesterol was elevated at 18. 6. TSH from 08/05/2018, within normal limits at 3.750. 7. Toxicology screen from 08/05/2018, negative for all substances screened and negative for ethyl alcohol. MAJOR PROCEDURES OR TESTS: None. HOSPITAL COURSE: The most prominent symptoms and behaviors, while the patient was here, reports of severe anxiety. The patient did present irritable and agitated at the time of admission. The patient denied making any homicidal threat toward his brother. This PERFORMANCE IMPROVEMENT SPECIALIST did speak with the family, including mother , and brother is aware of threat and reports that there was an argument when patient was visiting family in [place] and due to the argument, the patient asked to be brought back to [place] by his mother. The patient denies any homicidal ideation at the time of discharge. The patient does report getting into an argument with his brother while visiting in [place]. Treatment modalities utilized during hospitalization were milieu and group therapy. Zoloft 100 mg p.o. at bedtime was continued to target mood symptoms, was tolerated with no report of side effects and with good response. Zyprexa Zydis 10 mg p.o. at bedtime was continued and titrated to 20 mg p.o. at bedtime at the time of discharge. This medication was prescribed for mood symptoms, was tolerated with no report of side effects and with good response. Klonopin 1 mg p.o. twice daily was continued to target agitation and severe anxiety, was tolerated with good response. Remeron 30 mg p.o. at bedtime was continued to target mood symptoms, was tolerated with no report of side effects and with good response. The patient has improved considerably with no signs of psychiatric symptoms and no psychiatric symptoms expressed at the time of discharge. The patient reports he has improved since admission. States to be in stable condition, feels safe to discharge and he contracts for safety. The patient's response to treatment was good. There were no adverse or unexpected results of treatment. The patient was safe throughout his stay, active in treatment, engaged in groups, and was appropriate with staff and other patients. The patient met with the treatment team prior to discharge to assess readiness to discharge and review discharge plan. The treatment team consensus is that the patient is in stable condition, has a safe discharge plan, and is ready to discharge today. CONDITION ON DISCHARGE: Patient is in stable condition and is no longer a danger to self or others, and is not gravely disabled due to mental illness. Patient is no longer in need of inpatient level of care, and can be safely and effectively treated within the community. The patients level of risk at time of discharge is low. MSE: The patient is casually dressed and with good hygiene , and looks stated age. Patient is sitting, posture is upright, and position is relaxed. Patient appears awake, alert, and responds appropriately and reasonably during interview. Patient is engaged, relates well to interviewer, and emotional facial expression is appropriate to situation and changes appropriately with topic. Patient is cooperative, makes comfortable eye contact , and movements are voluntary, deliberate, coordinated, and smooth and even with no inappropriate movements. Patient makes laryngeal sounds effortlessly and shares conversation appropriately; pace of conversation is appropriate, and stream of talking is fluent; articulation is clear and understandable; word choice is effortless and appropriate for education level; completes sentences, occasionally pausing to think; rate and volume are appropriate for interview and setting. Patient reports mood as euthymic. Patients affect is stable with full variable range, congruent with mood, and appropriate to speech and circumstances. Patient has linear and logical thinking, with no loose associations, tangential thought, thought blocking, concrete thinking, or any other signs of formal thought disorder. Patient denies suicidal and homicidal ideation, and denies hallucinations and delusions. Patient appears to be a reliable historian with sound judgement and good insight into current condition. Patient has no apparent dysfunction in recent or remote memory noted , and no evidence of gross cognitive dysfunction noted at any point during the interview. DISCHARGE DIAGNOSES: 1. Schizoaffective disorder. 2. Alcohol use disorder, severe. 3. Cannabis use disorder, severe. CURRENT MEDICATIONS: After reviewing options, risks and benefits with the patient, the patient agrees to continue the following medications: 1. Zoloft 100 mg p.o. at bedtime. 2. Zyprexa 20 mg p.o. at bedtime. 3. Remeron 30 mg p.o. at bedtime. 4. Klonopin 1 mg p.o. twice daily. The patient reports that he plans to go to [facility] outpatient today, to pickle pumper his prescriptions. The patient reports he picks up his prescriptions for 7 day supplies. The patient reports he does not need any prescriptions from this PERFORMANCE IMPROVEMENT SPECIALIST prior to discharging. The medications are reviewed with the patient at the time of discharge to ensure accuracy and patient understanding. DISPOSITION: The patient left the hospital independently and voluntarily. He plans to return to his apartment in [place] and plans to go to [facility] today, to pickle pumper his prescription medications. The patient states he plans to return to work tomorrow at [employer] and reports his mother and father plan to visit him this weekend from [place]. FOLLOWUP: training coordinator reports the appropriate outpatient follow-up services have been established and outpatient appointments have been scheduled. The patient received written instructions with times and dates of outpatient follow-up appointments. The following follow-up recommendations were provided to the patient at discharge: Continue psychotropic medications as prescribed and attend appointments as scheduled. Report any side effects to a psychiatric outpatient provider, a primary care provider, or other health senior caregiver. Address any questions or problems concerning the psychotropic medications with a psychiatric outpatient provider, a primary care provider, or other health senior caregiver. Contact [facility] or [facility], or go to the nearest emergency room, if you are ever a danger to yourself/others, or unable to care for yourself. As soon as possible, establish a routine medication management treatment with a psychiatric provider, establish routine therapy appointments, and follow-up with a primary care provider. SUBSTANCE ABUSE BRIEF INTERVENTION: Brief intervention regarding the risks of cannabis and alcohol abuse is provided to patient with goal to reduce the risk of harm that could result from the continued use of cannabis and alcohol, with the general aim to investigate the problem, raise awareness of problem, develop a solution with the patient, recommend a specific change or activity, and motivate the patient toward change. Assess substance abuse behavior and give supportive advice about harm reduction, recommend a reduction in hazardous/at- risk consumption patterns, and facilitate referrals for additional specialized treatment with customer care representative. Intermediate goal is for the patient to quit and attend outpatient substance abuse treatment. Intervention focus on intermediate goals to allow for more immediate success in the treatment process to keep the patient motivated. Review following with patient: Cannabis use risks: Short-term use: impaired short-term memory, impaired motor coordination, altered judgement, in high doses paranoia and psychosis. Long-term use addiction, diminished life satisfaction and achievement, symptoms of chronic bronchitis, and increased risk of chronic psychosis disorders if predisposition to such disorders. In withdrawal anger, aggression irritability, anxiety and nervousness, decreased appetite or weight loss, restlessness, and sleep difficulties with strange dreams. Alcohol/Binge Drinking risks: short-term: injuries, violence, alcohol poisoning, risky sexual behaviors. Long-term: high blood pressure, stroke, liver disease, digestive problems, cancer, learning and memory problems, depression and anxiety, social problems, and alcohol dependence. OUTPATIENT SUBSTANCE ABUSE TREATMENT: Patient referred to outpatient provider and treatment for continued treatment related to substance abuse. LEGAL COURSE: The patient was admitted on an M1 hold for involuntary psychiatric hospitalization. The patient became voluntary during his hospitalization, and the patient was discharged today independently and voluntarily. ATTITUDE AT TIME OF DISCHARGE: The patients attitude was positive at time of discharge, and patient reports looking forward to discharging today. The patient reports he feels safe to discharge, is no longer a danger to himself or others, is in stable condition, and contracts for safety. Patient states he will continue medications as prescribed, and establish medication management treatment with an outpatient provider after discharge. Patient reports he understands the information that has been provided to him, and he understands, accepts, and agrees to psychotropic medications. Patient describes internal protective factors as the coping skills he has learned while hospitalized here, and he plans to continue to practice these coping skills after discharge. FAMILY MEETING: This PERFORMANCE IMPROVEMENT SPECIALIST and patient, at patient's request, met with patient's mother by phone to assess readiness to discharge and review discharge plan. Patient's mother reports patient is safe to discharge and has a safe discharge plan. LABS AND RADIOLOGY STUDIES: There were no pending labs or studies at the time of discharge. ADVANCE DIRECTIVES: There were no advance directives on file, and the patient was full code during this hospitalization. The following psychotropic medication treatment informed consent and recommendations were provided to the patient at time of discharge. Patient reports he understands, accepts, and agrees to the information that has been provided. PSYCHOTROPIC MEDICATION TREATMENT INFORMED CONSENT and RECOMMENDATIONS: Review nature of condition, diagnosis, and prognosis. Review nature and purpose of psychotropic medication treatment. Review type of psychotropic medications being prescribed. Review risk and benefits of psychotropic medication treatment. Review probable length of time will need to take medications. Review risk and benefits of not undergoing psychotropic medication treatment. Review alternative treatments to psychotropic medications. Review psychotropic medications contraindications, side effects, and importance of reporting any side effects to a psychiatric provider, primary care provider, or other health senior caregiver. Review importance of asking a psychiatric provider or primary care provider any questions or problems concerning the psychotropic medications. Review safety plan and the importance to contact [facility] or [facility] , or go to the nearest emergency room, if ever a danger to yourself/others, or unable to care for yourself. Recommend upon discharge to establish routine medication management treatment with a psychiatric provider, establish routine therapy appointments, and follow-up with a primary care provider. Verify patient understands, accepts, and agrees to the information that has been provided. /[id number]
== END 2018-08-10 11:15 | disposition home or self-care (01) | DRG 885 ==
LOC: EDUNIT# → BBEH 21:50
PROVIDERS: ADMIT Psychiatry & Neurology Psychiatry; ATTEND Psychiatry & Neurology Psychiatry
DX: F25.1 Schizoaffective disorder, depressive type (principal); T43.506A Underdosing of unspecified antipsychotics and neuroleptics, initial encounter; F12.959 Cannabis use, unspecified with psychotic disorder, unspecified; Z72.89 Other problems related to lifestyle
CPT/HCPCS: 80305; G0480